=== PATIENT | female | born 1945 | race Caucasian/White ===

== ENCOUNTER 2016-04-22 09:00 | Inpatient (IN) | payer MEDICARE, OTHER ==
[~2016-04-22] VITALS: Ht 167.6 cm; Wt 83.0 kg
--- NOTE | ~2016-04-22 | DS ---
PATIENT'S NAME: PHIL MCKEON [facility] AGE: 70 Y [address] ROOM: [place] [id number] LOCATION: [facility] ADMIT DATE: 05/05/2016 Discharge Summary DISCHARGE DATE: 05/07/2016 FAMILY PHYSICIAN: Edilma Jones APRN ATTENDING PHYSICIAN: Kg Cavanaugh PRIMARY DIAGNOSIS: Degenerative joint disease of the left knee. SECONDARY DIAGNOSES: 1. Essential hypertension. 2. Hypothyroidism. 3. Diabetes type 2. PROCEDURE PERFORMED: Left total knee arthroplasty with computer navigation. HISTORY: The patient is a 70-year-old female, who presents with advanced left knee degenerative joint disease and associated severely compromised activities of daily living. The patient has decided to proceed with total knee arthroplasty after having been thoroughly counseled regarding the risks, benefits, limitations and alternatives. Please refer to the outpatient clinic notes and admission history and physical for this patient. HOSPITAL COURSE: The patient underwent a left total knee arthroplasty on 05/05/2016 without complications. Spinal anesthesia plus adductor canal block plus periarticular local anesthesia was utilized. The patient received 24 hours of perioperative prophylactic antibiotics and remained hemodynamically stable, neurovascularly intact throughout the entire hospital course. The postoperative prophylactic deep venous thrombosis prophylaxis consisted of Xarelto 10 mg, early mobilization and pneumatic compression devices. Daily physical therapy for gait training, transfer training range of motion and quadriceps isometric exercises were received. The patient progressed well in physical therapy. On the date of discharge, 05/07/2016, the incision at the knee was healing well and showed no signs of infection. DISPOSITION: Home. DISCHARGE ACTIVITY: The patient is to bear weight as tolerated with range of motion and quadriceps isometric exercises as instructed. The operative extremity is to be elevated at least 90% of the day. There is to be sterile 4x4 gauze dressings to the incision daily. Dr. Cavanaugh is to be notified immediately if there is any increased pain, fevers, chills erythema or drainage. DISCHARGE MEDICATIONS: Include, 1. Xarelto 10 mg, take 1 tablet p.o. daily for DVT prevention. PATIENT'S NAME: PHIL MCKEON [facility] AGE: 70 Y [address] ROOM: [address] [address] LOCATION: [facility] ADMIT DATE: 05/05/2016 Discharge Summary DISCHARGE DATE: 05/07/2016 FAMILY PHYSICIAN: Edilma Jones APRN ATTENDING PHYSICIAN: Kg Cavanaugh 2. Valium 5 mg, take 1/2 tablet to 1 tablet every 6 hours as needed for muscle spasms. 3. Dilaudid 2 mg, take 1 to 2 tablets p.o. every 4 hours as needed for pain. The patient is then instructed to continue all other preadmission medications as instructed by the Internal Medicine physician. FOLLOWUP: Followup date is May 12, 2016 for initial postoperative evaluation and x-rays at that time. KENYON RODRÍGUEZ FOR MD WILLIAM MADISON/ricarda /[id number] d: 05/20/16 0327 t: 05/27/16 1032, DISCHARGE SUMMARY
--- NOTE | ~2016-04-22 | OR ---
PATIENT'S NAME: PHIL MCKEON [facility] AGE: 70 Y [address] ROOM: [place] [address] LOCATION: [facility] ADMIT DATE: 05/05/2016 OR/Procedure Report DISCHARGE DATE: FAMILY PHYSICIAN: Edilma Jones APRN ATTENDING PHYSICIAN: UX HERNANDEZ SURGEON: Xu Hernandez MD HOSPITALITY JOB TITLES: 1. Don Hernández PA-C. 2. Xu Cam. DATE OF PROCEDURE: 05/05/2016 PRE-OP DIAGNOSIS: Degenerative joint disease left knee. POST-OP DIAGNOSIS: Degenerative joint disease left knee. OPERATION: Left total knee arthroplasty with computer navigation. ANESTHESIA: Spinal anesthesia plus adductor canal block plus periarticular local anesthesia (ropivacaine with epinephrine and Toradol). ESTIMATED BLOOD LOSS: Less than 10 mL. DRAIN: None. SPECIMEN: None. COMPLICATIONS: None. IMPLANT SYSTEM: [place] [employer] Size 4 left posterior stabilized femoral component Size 3 universal modular tibial base plate 11 mm posterior stabilized size 3 X3 tibial polyethylene insert 32 mm Oval X3 patella component (triple pegged). INDICATIONS FOR SURGERY: The patient is a 70-year-old female who presents with advanced left knee degenerative joint disease and associated severely compromised activities of daily living. The patient has decided to proceed with knee replacement after having been thoroughly counseled regarding the associated risks, benefits, and limitations. We have specifically reviewed the risks and implications of infection, deep venous thrombosis, pulmonary embolism, mortality, neurovascular complications, blood transfusion (and associated potential for disease transmission or transfusion reaction), stiffness, instability, mechanical deterioration of the components (due to wear and or loosening), and the potential need for revision. We have also emphasized the importance of active involvement and compliance with post- operative physical therapy as a means of optimizing range of motion and PATIENT'S NAME: PHIL MCEKON [facility] AGE: 70 Y [address] ROOM: [place] [address] LOCATION: [facility] ADMIT DATE: 05/05/2016 OR/Procedure Report DISCHARGE DATE: FAMILY PHYSICIAN: Edilma Jones APRN ATTENDING PHYSICIAN: UX HERNANDEZ functional recovery. Informed consent has been granted. DESCRIPTION OF PROCEDURE: The patient was positioned supine after administration of anesthesia and prophylactic antibiotics. A well-padded pneumatic tourniquet was placed around the left proximal thigh, and the left lower extremity was prepped and draped with vigilant sterile technique. The patient's name as well as the intended operative side and procedure were confirmed with a verbal time-out involving myself, the circulating nurse, the scrub nurse, and the anesthesiologist. Examination under anesthesia demonstrated no active skin lesions or masses. There was a large effusion. There was no erythema. There was no abnormal warmth. There were no significant preexisting scars. Range of motion under anesthesia was from a 2-degree flexion contracture to 110 degrees of flexion. There was no ligamentous insufficiency. The left lower extremity was elevated and exsanguinated with an Esmarch wrap, and the pneumatic tourniquet was inflated to 300mmHg. The knee was approached through a longitudinal midline incision. A medial parapatellar arthrotomy was performed and the patella was everted. Examination of the joint space demonstrated a large amount of benign-appearing translucent synovial fluid. There was a 5 mm osseous loose body at the posterior aspect of the medial compartment. There was generalized mildly proliferative synovitis. An extensive synovectomy was performed. The posterior cruciate ligament was normal. The anterior cruciate ligament was attenuated (approximately 50% of its fibers were absent). There were small osteophytes at the intercondylar notch, lateral femoral condyle, lateral femoral trochlea, and the circumference of the patella. There was full-thickness loss of articular cartilage involving 90% of the medial facet of the patella and 80% of the medial femoral condyle. There was a 2 x 3 cm region of full-thickness articular cartilage loss at the medial half of the femoral trochlea and an additional 2 cm region of high-grade partial-thickness articular cartilage loss at the central aspect of the patella. There were moderate-sized osteophytes at the medial femoral condyle, medial tibial plateau, and medial femoral trochlea. There was a 5 mm diameter region of full-thickness articular cartilage loss at the medial aspect of the lateral tibial plateau. There was moderate inner perimeter tearing of the medial and lateral menisci. Remnants of the menisci and cruciate ligaments were excised. The [employer] navigation femoral tracker was pinned in place at the distal aspect of the femoral trochlea. Absence of motion between the femur and the tracking device was confirmed manually and visually. Femoral osseous landmarks were obtained in order to calibrate the computer navigation system. Landmarks included the center of rotation of the ipsilateral hip, the center-point of PATIENT'S NAME: PHIL MCKEON [facility] AGE: 70 Y [address] ROOM: [id number] [place], [place] [id number] LOCATION: [facility] ADMIT DATE: 05/05/2016 OR/Procedure Report DISCHARGE DATE: FAMILY PHYSICIAN: Edilma Jones APRN ATTENDING PHYSICIAN: XU HERNANDEZ the distal femur, the femoral AP axis, 57 points on the medial femoral condyle articular surface, and 57 points on the lateral femoral condyle articular surface. The [employer] computer navigation system was subsequently utilized to position the distal femoral resection block such that the distal femoral resection was performed perfectly perpendicular to the femoral mechanical axis. The distal femoral resection was performed with a Switchboard oscillating saw. The [employer] computer navigation tibial tracker was pinned in place at the anterior aspect of the tibial plateau. Absence of motion between the tibia and the tracking device was confirmed manually and visually. Tibial osseous landmarks were obtained in order to calibrate the computer navigation system. Landmarks included the center-point of the tibial plateau, the AP tibial axis, 57 points on the medial tibial plateau articular surface, 57 points on the lateral tibial plateau articular surface, the medial malleolus, and the lateral malleolus. The [employer] computer navigation system was subsequently utilized to position the proximal tibial resection block such that the proximal tibial resection was performed perfectly perpendicular to the tibial mechanical axis. The proximal tibial resection was performed with a Super Precision oscillating saw. Perpendicularity of the tibial resection with respect to the tibial shaft axis was reconfirmed by inserting a spacer- block attached to an extramedullary guide vdia. External rotation of the anterior and posterior femoral resections was set parallel to the epicondylar axis and carefully adjusted in order to create a rectangular flexion gap. The box resection was performed with a reciprocating saw. Anterior and posterior chamfer resections were performed with the oscillating saw. Posterior condyle osteophytes were excised with an osteotome. All other osteophytes were excised with a rongeur. Resection of all remnants of the menisci was reconfirmed. Flexion and extension gaps were confirmed to be symmetric and well balanced with a spacer-block technique. The patella resection was performed with an oscillating saw such that the composite thickness of the reconstructed patella was equivalent to the thickness of the [place] patella. Patella tracking was confirmed to be optimal. Patella tracking was optimal, and there was no need for a lateral retinacular release. All trial components were removed and all prepared osseous surfaces were thoroughly irrigated with pulsatile saline lavage and dried prior to cementing all three components in a single stage using Mikey Simplex cement containing pre-mixed tobramycin. All extruded excess cement was removed. The entire joint space was thoroughly inspected and thoroughly irrigated with bacteriostatic pulsatile saline lavage to assure that there was no residual debris of any sort. PATIENT'S NAME: PHIL MCKEON [facility] AGE: 70 Y [address] ROOM: [address] [address] LOCATION: [facility] ADMIT DATE: 05/05/2016 OR/Procedure Report DISCHARGE DATE: FAMILY PHYSICIAN: Edilma Jones APRN ATTENDING PHYSICIAN: XU HERNANDEZ Final range of motion was from full extension (with no passive hyperextension) to 130 degrees of flexion. Patella tracking was reconfirmed to be optimal. There was excellent anteroposterior stability at 90 degrees of flexion. There was 0 mm of medial lift-off to valgus stress in full extension. There was 1 mm of lateral lift-off to varus stress in full extension. The arthrotomy was closed with multiple simple and vcovst-co-uzznf interrupted #1 Vicryl. Subcutaneous tissues were thoroughly re-irrigated with bacteriostatic pulsatile saline lavage. Subcutaneous tissues were re- approximated with simple buried interrupted #0 Vicryl sutures. The skin was closed with simple buried interrupted 2-0 Vicryl sutures followed by surgical alejandro. The dressing consisted of Xeroform gauze, 4x4 gauze, ABD pads and two 6-inch Mao Wraps. There were no intra-operative complications. MD CESAR MADISON/ricarda /[id number] d: 05/05/16 1650 t: 05/06/16 1044, OPERATIVE SUMMARY
[2016-04-22] MEDS ORDERED: LEVOTHROID (S100 MCG PO (09:19)
[2016-04-22] MEDS ORDERED: K-TAB 10MEQ10 MEQ PO (09:19)
[2016-04-22] MEDS ORDERED: LIVALO4 MG PO (09:20)
[2016-04-22] MEDS ORDERED: ZETIA10 MG PO (09:20)
[2016-04-22] MEDS ORDERED: ASPIRIN LO-DOSE81 MG PO (09:21)
[2016-04-22] MEDS ORDERED: DIOVAN80 MG PO (09:21)
[2016-04-22] MEDS ORDERED: GLUCOPHAGE1000 MG PO (09:21)
[2016-04-22] MEDS ORDERED: CITRACAL+D(315M1 TAB PO (09:22)
[2016-04-22] MEDS ORDERED: CENTRUM SILVER1 EAC4 PO (09:22)
[2016-04-22] MEDS ORDERED: COQ10-VIT E 201 EACH PO (09:22)
[2016-04-22] MEDS ORDERED: FISH OIL 1,0001 EACH PO (09:22)
[2016-04-22] MEDS ORDERED: TYLENOL EXTRA500 MG PO (09:22)
[2016-04-24] MEDS ORDERED: GLUCOPHAGE1000 MG PO (14:25)
--- NOTE | 2016-05-05 14:53 | NUR ---
Introduced self to pt. Instructed her to do 100 ankle pumps/hour and 10 breaths/hour using the Incentive Spirometer. She plans to go home after dismissal, has all necessary equipment.
[2016-05-05] MEDS ORDERED: AMBIEN10 MG PO (15:17)
--- NOTE | 2016-05-05 16:21 | NUR ---
Significant Event: Dilaudid 2mg x2 last at 1426. Dressing dry and intact. CSM WNL. Up to chair/BR with walker and one assist. Coided x2. Taking po well. Will be on routine VS Follow up:
--- NOTE | 2016-05-06 04:29 | NUR ---
Significant Event: Alert and oriented X3. VSS. On RA. Lungs clear, IS use. CSM WNL. Dressing to L) knee is CDI. Ice to knee. Up to bathroom with 1 assist, gait belt and walker. Diladid given last at 0405. Toradol given x1 at 0405. Valium 2.5 mg given X1. Accucheck at HS was 168. Follow up: Next atb at 0700
--- NOTE | 2016-05-06 11:16 | NUR ---
[id number] [facility] Students-Monitored assessment, documentation, and medication administration
--- NOTE | 2016-05-06 11:54 | NUR ---
CARED FOR PATIENT FROM 0630 JUSTA 0930. UP TO THE BATHROOM WITH MINIMAL ASSIST. ACCUCHECK OF 98 THIS AM. CSM WNL. DRESSING C/D/I. VERY VOOPERATIVE WITH CARES.
--- NOTE | 2016-05-06 17:04 | NUR ---
Significant Event: patient alert and oriented x3. jennifer dressing to l) knee c/d/i. csm assessments wnl. pain well controlled with routine tylenol extra strength and dilaudid, rates pain 4-0 on pain scale. dilaudid 1 tab given last at 1610. bilateral knee high sarah hose and foot pumps on. ambulates to bathroom and up to chair with sba, use of walker/gait belt. ez wrap to l) knee. accucheck 103 at lunch. pleasant and cooperative with cares. Follow up:
--- NOTE | 2016-05-07 04:41 | NUR ---
Significant Event: Pt alert and oriented. Up with SBA and walker. Last dilaudid at 0330. Had toradol, valium, tylenol and dilaudid at 2300. Voididng well. IS up to 3500. [facility] [place]. D/C home today. Follow up:
[2016-05-07] MEDS ORDERED: COLACE100 MG PO (09:40)
[2016-05-07] MEDS ORDERED: MIRALAX17 GM PO (09:45)
[2016-05-07] MEDS ORDERED: XARELTO10 MG PO (09:48)
[2016-05-07] MEDS ORDERED: VALIUM5 MG PO (09:49)
[2016-05-07] MEDS ORDERED: DILAUDID 2MG(HYD2 MG PO (09:50)
[2016-05-07] MEDS ORDERED: CELEBREX200 MG PO (09:51)
--- NOTE | 2016-05-07 10:33 | NUR ---
[id number] [facility] Manager Combination, Monitored assessment, documentation and medication administration
--- NOTE | 2016-05-07 15:09 | NUR ---
Discharge instructions given to patient and her . Both verbalize understanding of all instructions. Reviewed care of incision/dressing, when to call md, s/s infection, s/s dvt, dvt prevention, all medications, sarah hose, Sent home ez wrap and dressings. All questions answered. All belongings sent with patient. To front door per w/c with transport.
== END 2016-05-07 14:00 | disposition disaster alternative care site (69) | DRG 470 ==
LOC: G3N 05-05 05:17
PROVIDERS: ADMIT Orthopaedic Surgery
PROC: 8E0YXBZ Computer Assisted Procedure of Lower Extremity (ICD-10-PCS; principal; 2016-05-05)
PROC: 0SRD0J9 Replacement of Left Knee Joint with Synthetic Substitute, Cemented, Open Approach (ICD-10-PCS; principal; 2016-05-05)
DX: M17.12 Unilateral primary osteoarthritis, left knee (principal); E11.9 Type 2 diabetes mellitus without complications; I10 Essential (primary) hypertension; E03.9 Hypothyroidism, unspecified; Z79.82 Long term (current) use of aspirin; Z87.891 Personal history of nicotine dependence; Z79.84 Long term (current) use of oral hypoglycemic drugs
CPT/HCPCS: C1713; C1776; J0690; J1885; J2001; J2250; J2795; J7030; J7120